=== PATIENT | male | born 1960 | race Hispanic/Latino ===

== ENCOUNTER 2022-07-28 20:43 | Emergency (ER) | payer MEDICAID ==
[2022-07-28] MEDS: SODIUM CHLORIDE 0.9% 1000 ML 1,000 ML IV ONE ×2 (22:02→23:05)
--- NOTE | 2022-07-28 22:29 | XRay Report ---
CHEST 1 VIEW 07/28/2022 9:47 PM INDICATION / CLINICAL INFORMATION: Altered Mental Status. COMPARISON: 10/17/2018. FINDINGS: SUPPORT DEVICES: None. HEART / MEDIASTINUM: No significant abnormality. LUNGS / PLEURA: No significant pulmonary or pleural abnormality. No pneumothorax. ADDITIONAL FINDINGS: No significant additional findings. IMPRESSION: No acute abnormality. Signer Name: Hesham Galicia MD Signed: 07/28/2022 10:25 PM Workstation Name: [id number]
[2022-07-28 22:34] LABS: Basophils # (Auto) 0.1 K/mm3 (0.0-0.1); Basophils % (Auto) 0.6 % (0.0-1.8); Eosinophils % (Auto) 0.4 % (0.0-4.3); Hematocrit 41.6 % (35.5-45.6); Hemoglobin 14.3 gm/dl (11.8-15.2); Lymphocytes # (Auto) 1.3 K/mm3 (1.2-5.4); Lymphocytes % (Auto) 10.5 % (13.4-35.0); Mean Corpuscular HGB Conc 34 % (32-34); Mean Corpuscular Volume 92 fl (84-94); Monocytes # (Auto) 0.5 K/mm3 (0.0-0.8); Monocytes % (Auto) 3.9 % (0.0-7.3); Platelet Count 259 K/mm3 (140-440); Red Cell Distribution Width 14.1 % (13.2-15.2)
[2022-07-28 22:45] LABS: INR 0.95 (0.87-1.13)
[2022-07-28 22:55] LABS: Alanine Aminotransferase 13 units/L (7-56); Albumin 4.3 g/dL (3.9-5); Blood Urea Nitrogen 9 mg/dL (9-20); Hemolysis Index 9
[2022-07-28 23:00] LABS: BUN/Creatinine Ratio 15
[2022-07-28 23:33] LABS: Amphetamine Screen,Urine PRESUMPTIVE NEGATIVE; Benzodiazepines Screen,Urine PRESUMPTIVE NEGATIVE; Cannabinoid Screen,Urine PRESUMPTIVE POSITIVE; Cocaine Screen,Urine PRESUMPTIVE NEGATIVE; Methadone Screen,Urine PRESUMPTIVE NEGATIVE; Opiate Screen,Urine PRESUMPTIVE NEGATIVE
--- NOTE | 2022-07-29 00:09 | Emergency Department Report ---
ED General Adult HPI - General Chief complaint: Overdose Stated complaint: OVERDOSE PUI?: No Time Seen by Provider: 07/28/22 21:39 Source: patient Mode of arrival: Ambulatory Limitations: No Limitations - History of Present Illness Initial comments: Family called because pt fell. When EMS arrived decreased respirations. Narcan 0 .8mg IV given and awaken. Stated that he drank 4 beers at around 1230 today and took his meds. AAOX3 tonight. -: hour(s) Improves with: none Worsens with: none Associated Symptoms: denies: denies other symptoms, confusion, chest pain, headaches, loss of appetite - Related Data Allergies Allergy/AdvReac Type Severity Reaction Status Date / Time Penicillins Allergy Hives Verified 07/28/22 21:38 ED Review of Systems ROS: Stated complaint: OVERDOSE Other details as noted in HPI Constitutional: denies: chills, fever Eyes: denies: eye pain, eye discharge, vision change ENT: denies: ear pain, throat pain Respiratory: denies: cough, shortness of breath, wheezing Cardiovascular: denies: chest pain, palpitations Endocrine: no symptoms reported Gastrointestinal: denies: abdominal pain, nausea, diarrhea Genitourinary: denies: urgency, dysuria Musculoskeletal: denies: back pain, joint swelling, arthralgia Skin: denies: rash, lesions Neurological: denies: headache, weakness, paresthesias Psychiatric: denies: anxiety, depression Hematological/Lymphatic: denies: easy bleeding, easy bruising ED Past Medical Hx - Past Medical History Previous Medical History?: Yes Hx Hypertension: Yes Hx CVA: No Hx Heart Attack/AMI: No Hx Psychiatric Treatment: Yes (Anxiety, depression) - Surgical History Past Surgical History?: Yes Additional Surgical History: Abdominal - Social History Smoking Status: Current Every Day Smoker Substance Use Type: Alcohol ED Physical Exam - General Limitations: No Limitations General appearance: alert, other (sleepy but reposnive following commands ) - Head Head exam: Present: atraumatic, normocephalic - Eye Eye exam: Present: normal appearance - ENT ENT exam: Present: mucous membranes moist - Neck Neck exam: Present: normal inspection - Respiratory Respiratory exam: Present: normal lung sounds bilaterally. Absent: respiratory distress - Cardiovascular Cardiovascular Exam: Present: regular rate, normal rhythm. Absent: systolic murmur, diastolic murmur, rubs, gallop - GI/Abdominal GI/Abdominal exam: Present: soft, normal bowel sounds - Rectal Rectal exam: Present: deferred - Extremities Exam Extremities exam: Present: normal inspection - Back Exam Back exam: Present: normal inspection - Neurological Exam Neurological exam: Present: alert, oriented X3 - Psychiatric Psychiatric exam: Present: normal affect, normal mood - Skin Skin exam: Present: warm, dry, intact, normal color. Absent: rash ED Course Vital Signs 07/28/22 20:44 Temperature 98 F Pulse Rate 74 Respiratory 18 Rate Blood Pressure 109/69 O2 Sat by Pulse 97 Oximetry ED Medical Decision Making - Lab Data Result diagrams: 07/28/22 22:08 07/28/22 22:08 - EKG Data -: EKG Interpreted by Ok EKG shows normal: sinus rhythm Rate: normal - EKG Data Interpretation: no acute changes - Radiology Data Radiology results: report reviewed, image reviewed - Medical Decision Making work up unremarkable , pt is not suidical denies any overdose feels safe at home Critical care attestation.: If time is entered above; I have spent that time in minutes in the direct care of this critically ill patient, excluding procedure time. ED Disposition Clinical Impression: Accidental ingestion of substance Disposition: 01 HOME / SELF CARE / HOMELESS Is pt being admited?: No Does the pt Need Aspirin: No Condition: Stable Instructions: Preventing Poisoning, Adult
[2022-07-29 02:24] VITALS: BP 132/75
--- NOTE | 2022-07-29 10:05 | Electrocardiograph Report ---
[facility] Test Date: 2022-07-28 Test Time: 21:21:12 Pat Name: HERNANDEZ SMITH Department: Room: Gender: M Hotel Security Officer: GARRY : 1960 Requested By: LJ MEYER Order Number: [id number] Reading MD: Uriel Franco Measurements Intervals [place] Rate: 72 P: 55 IN: 154 QRS: 71 QRSD: 97 T: 27 QT: 386 QTc: 423 Interpretive Statements Sinus rhythm No previous ECG available for comparison Electronically Signed On 07-29-2022 10:05:19 EDT by Uriel Franco
== END 2022-07-29 02:35 | disposition home or self-care (01) ==
LOC: ED 20:43
DX: T50.7X1A Poisoning by analeptics and opioid receptor antagonists, accidental (unintentional), initial encounter (principal); I10 Essential (primary) hypertension; F41.9 Anxiety disorder, unspecified; F17.200 Nicotine dependence, unspecified, uncomplicated; Z79.899 Other long term (current) drug therapy; Y92.89 Other specified places as the place of occurrence of the external cause
CPT/HCPCS: 36415; 71045; 80053; 80307; 82550; 84484; 85025; 85610; 93005; 96360; 99284; J7030; 80320; G0480